=== PATIENT | female | born 1960 | race African-American/Black ===

== ENCOUNTER → 2021-02-04 11:09 | Outpatient (CLI) | payer MEDICARE, BC ==
[2021-02-04 12:03] LABS: BASOPHILS 1.3 % (0-2); EOSINOPHILS 5.5 % (0-7); HEMATOCRIT 34.1 % (36.0-48.0); HEMOGLOBIN 10.5 g/dL (12-16); IMMATURE GRANULOCYTES 0.4 % (0-5); LYMPHOCYTE ABS# 1.71 10x3/uL (1.18-3.74); LYMPHOCYTES 24.6 % (15-50); MCH 27.1 pg (26.0-34.0); MCHC 30.8 g/dL (31.0-37.0); MCV 87.9 fL (80.0-100.0); MEAN PLATELET VOLUME 9.9 fL (7.4-10.4); MONOCYTES 8.8 % (2-11); NEUTROPHIL ABS# 4.14 10x3/uL (1.56-6.13); NEUTROPHILS 59.4 % (40-80); PLATELET COUNT 425 10x3/uL (130-400); RBC 3.88 10x6/uL (4.00-5.40); RDW 14.4 % (11.5-14.5)
[2021-02-04 12:07] LABS: ALBUMIN 3.6 g/dL (3.4-5.0); ALKALINE PHOSPHATASE 105 U/L (30-120); ALT (SGPT) 28 U/L (10-68); BILIRUBIN - TOTAL 0.32 mg/dL (0.2-1.3); CALC OSMOLALITY 274 mosm/kg (275-300); CALCIUM 9.5 mg/dL (8.5-10.1); CARBON DIOXIDE 30.3 mmol/L (21.0-32.0); CHLORIDE - SERUM 101 mmol/L (98-107); CREATININE - SERUM 0.8 mg/dL (0.6-1.3); GLUCOSE 100 mg/dL (74-106); POTASSIUM - SERUM 4.1 mmol/L (3.5-5.1); PROTEIN - SERUM 7.7 g/dL (6.4-8.2); SODIUM 138 mmol/L (136-145); UREA NITROGEN 11 mg/dL (7-18); eGFR NON AFRICAN AMERICAN 77 mL/min (90-120)
== END | disposition home or self-care (01) ==
LOC: D.LAB 11:09
PROVIDERS: ATTEND Surgery
DX: G60.9 Hereditary and idiopathic neuropathy, unspecified (principal)